=== PATIENT | female | born 1990 ===

== ENCOUNTER 2023-06-10 08:47 | Outpatient (REF) | payer OTHER, SELFPAY | END 2023-06-10 08:48 | disposition home or self-care (01) | LOC: HO.UMASIMG 08:47 | PROVIDERS: Visit Provider Family Medicine | DX: Z13.89 Encounter for screening for other disorder (principal) ==

== ENCOUNTER 2024-02-24 06:34 | Outpatient (REF) | payer OTHER, SELFPAY | END 2024-02-24 06:35 | disposition home or self-care (01) | LOC: HO.UMASIMG 06:34 | PROVIDERS: Visit Provider Family Medicine | DX: Z13.89 Encounter for screening for other disorder (principal) ==

== ENCOUNTER → 2024-03-16 11:30 | Outpatient (BNV) | payer OTHER, SELFPAY | PROVIDERS: Visit Provider Radiology Diagnostic Radiology | DX: N92.6 Irregular menstruation, unspecified (principal) | CPT/HCPCS: 76830; 76856 ==